=== PATIENT | male | born 1970 | race Caucasian/White ===

== ENCOUNTER 2019-07-25 18:50 | Emergency (ER) | payer BC ==
[~2019-07-25] VITALS: Ht 193 cm; Wt 90.7 kg
[2019-07-25 19:40] VITALS: BP_SYST 134
--- NOTE | 2019-07-25 23:06 | NUR ---
CALLED FOR BED PLACEMENT . NOT IN WAITING ROOM
--- NOTE | 2019-07-25 23:07 | NUR ---
Patient to [facility] for evaluation. Side rails up.
--- NOTE | 2019-07-25 23:10 | NUR ---
PATIENT BROUGHT IN COMPLAINING OF ACUTE LEFT EAR PAIN X 2 DAYS WORSENING TODAY. PATIENT WAS SEEN AT [facility]RGENT [facility]ARE LAST NIGHT AND DIAGNOSED WITH RUPTURED EAR DRUM. PAIN 11/21. NO OTHER COMPLAINTS/INJURIES PER PATIENT OR NOTED. WILL CONTINUE TO MONITOR.
--- NOTE | 2019-07-25 23:15 | NUR ---
ER Dr. BA at bedside examining patient.
[2019-07-25] MEDS ORDERED: NACL 0.9% 1,000 ML IV ONE (23:17)
[2019-07-25] MEDS ORDERED: ONDANSETRON HCL 4 MG/2 ML VIAL IVP ONE (23:30)
[2019-07-25] MEDS ORDERED: MORPHINE 4 MG/ML INJ. SYRINGE IVP ONE (23:30)
[2019-07-25 23:47] LABS: BASOPHILS % (AUTO) 0.1 % (0.0-2.0); EOSINOPHILS # (AUTO) 0.1 K/uL (0.0-0.4); EOSINOPHILS % (AUTO) 0.6 % (0.0-4.0); HEMATOCRIT 40.9 % (36-54); HEMOGLOBIN 14.1 g/dL (14.0-18.0); LYMPHOCYTES # (AUTO) 1.2 K/uL (1.0-5.5); MEAN CORPUSCULAR HEMOGLOBIN 30 pg (27-31); MEAN CORPUSCULAR HGB CONC 34 % (32-36); MEAN CORPUSCULAR VOLUME 88 fL (79.0-98.0); MONOCYTES # (AUTO) 1.1 K/uL (0.0-1.0); MONOCYTES % (AUTO) 9.7 % (1.7-9.3); NEUTROPHILS # (AUTO) 8.5 K/uL (1.8-7.7); NEUTROPHILS % (AUTO) 78.6 % (40.0-70.0); PLATELET COUNT (AUTO) 318 K/uL (130-430); RED BLOOD CELL COUNT(AUTO) 4.65 MIL/uL (4.2-6.2); RED CELL DISTRIBUTION WIDTH 12.1 % (9.0-15.0); WHITE BLOOD COUNT (AUTO) 10.9 K/uL (4.8-10.8)
[2019-07-26 00:03] LABS: CALCIUM 8.6 mg/dL (8.4-11.0); CREATININE 1.09 mg/dL (0.55-1.30); POTASSIUM 4.1 mmol/L (3.5-5.1)
[2019-07-26 00:09] LABS: ALBUMIN 3.5 g/dL (3.4-4.8); TOTAL BILIRUBIN 0.6 mg/dL (0.0-1.0)
--- NOTE | 2019-07-26 00:20 | NUR ---
# 20 gauge angiocath placed to RAC. Use of asceptic technique. Opsite placed over site. Blood return noted. Blood for lab drawn from site. Flushed with 10 cc of normal saline. No evidence of infiltration noted. Patient tolerated well.
--- NOTE | 2019-07-26 00:32 | NUR ---
PATIENT STATES HE DOES NOT HAVE A RIDE HOME. PATIENT WILL WAIT FOR CT SCAN TO SEE RESULTS TO SEE IF HE WILL TAKE MEDICATION OR NOT
[2019-07-26] MEDS ORDERED: cefTRIAXone 1 GM in D5W 50 ML IV ONE (01:15)
[2019-07-26] MEDS ORDERED: cefTRIAXone 1 GM IVPB PREMIX 50 ML IV ONE (01:29)
[2019-07-26 01:44] VITALS: BP_SYST 118
--- NOTE | 2019-07-26 01:44 | NUR ---
Patient given written and verbal discharge instructions and verbalizes understanding. ER MD discussed with patient the results and treatment provided. Patient in stable condition. ID arm band removed. IV catheter removed intact and dressing applied, no active bleeding. Rx of CIPRO AND NORCO given. Patient educated on pain management and to follow up with PMD. Pain Scale 0/10 Opportunity for questions provided and answered. Medication side effect fact sheet provided.
== END 2019-07-26 01:44 | disposition home or self-care (01) ==
LOC: SED 18:50
DX: H70.92 Unspecified mastoiditis, left ear (principal); Z88.1 Allergy status to other antibiotic agents
CPT/HCPCS: 36415; 70450; 80053; 85025; 87040; 96365; 99284; J0696; J7030; J2270; J2405